=== PATIENT | female | born 1985 | race Caucasian/White ===

== ENCOUNTER 2018-11-07 02:52 | Emergency (ER) | payer SELFPAY ==
[~2018-11-07] VITALS: Ht 165.1 cm; Wt 96.6 kg
[2018-11-07 02:59] VITALS: Ht 165.1 cm; Wt 96.6 kg
[2018-11-07 03:53] LABS: BASOPHIL % 0.6 % (0-2); PLATELET COUNT 274 x10^3mcL (130-400); RED CELL DISTRIBUTION WIDTH 13.3 % (11.5-14.5)
[2018-11-07 04:05] LABS: CALCIUM 8.8 mg/dL (8.5-10.1); CARBON DIOXIDE 25.2 mmol/L (21-32); CHLORIDE SERUM 106 mmol/L (98-107); CREATININE SERUM 0.6 mg/dL (0.6-1.0); GFR1 > 60 mL/min; GLUCOSE SERUM 111 mg/dL (74-106); POTASSIUM SERUM 3.5 mmol/L (3.5-5.1); SODIUM SERUM 140 mmol/L (136-145)
[2018-11-07 04:10] LABS: ALKALINE PHOSPHATASE 90 U/L (46-116); ALT/SGPT 18 U/L (14-59); AST/SGOT 10 U/L (15-37); BILIRUBIN TOTAL 0.2 mg/dL (0.20-1.00); TOTAL PROTEIN, SERUM 6.5 g/dL (6.4-8.2)
[2018-11-07 04:11] LABS: ALBUMIN 2.7 g/dL (3.4-5.0)
[2018-11-07 05:55] VITALS: BP 117/62
== END 2018-11-07 05:55 | disposition short-term general hospital (02) ==
LOC: ED 02:52
PROVIDERS: Emergency Medicine
DX: O42.912 Preterm premature rupture of membranes, unspecified as to length of time between rupture and onset of labor, second trimester (principal); Z3A.18 18 weeks gestation of pregnancy
CPT/HCPCS: 36415; J7030; Q0092

== ENCOUNTER 2019-02-28 12:17 | Emergency (ER) | payer SELFPAY ==
[~2019-02-28] VITALS: Ht 165.1 cm; Wt 93.4 kg
[2019-02-28 12:38] VITALS: Ht 165.1 cm; Wt 93.4 kg
[2019-02-28 16:55] VITALS: BP 131/81
== END 2019-02-28 16:55 | disposition home or self-care (01) ==
LOC: ED 12:17
DX: L25.9 Unspecified contact dermatitis, unspecified cause (principal); K04.7 Periapical abscess without sinus